=== PATIENT | female | born 1965 | race Hispanic/Latino ===

== ENCOUNTER 2020-12-04 16:46 | Emergency (ER) | payer BC, OTHER, SELFPAY ==
[2020-12-04 21:24] LABS: Absolute Lymphocytes (CBC) 1.3 K/uL (0.7-4.9); Basophils % 0.5 % (0-1.3); Hematocrit 35.2 % (36.0-45.0); Lymphocytes % 11.2 % (15.3-44.8); MPV 8.7 fL (7.6-11.3); RBC Red Blood Cell Count 4.15 M/uL (3.86-4.86)
[2020-12-04 21:42] LABS: ALT/SGPT 23 U/L (12-78); AST/SGOT 19 U/L (15-37); Albumin 2.9 g/dL (3.4-5.0); Alkaline Phosphatase 161 U/L (45-117); BUN Blood Urea Nitrogen 14 mg/dL (7-18); Bicarbonate 34 mmol/L (21-32); Bilirubin Direct < 0.1 mg/dL (0-0.2); Bilirubin Total 0.3 mg/dL (0.2-1.0); Glucose Level 333 mg/dL (74-106); Lipase 203 U/L (73-393); Potassium 3.8 mmol/L (3.5-5.1); Sodium Level 133 mmol/L (136-145)
[2020-12-04 22:01] LABS: Blood Morphology Comment NOT SEEN (NOT SEEN); Platelet Estimate ADEQ
[2020-12-04] MEDS ORDERED: NA CHLORIDE 0.9% 1,000 ML ONE (22:04)
[2020-12-04] MEDS ORDERED: levoFLOXacin 750 MG TAB ONE (23:39)
[2020-12-04] MEDS ORDERED: LIDOCAINE 1% MPF 30 ML VIAL ONE (23:39)
--- NOTE | 2020-12-04 23:48 | ER ---
Nurse's Notes [facility] Name: Chante Arteaga Age: 54 yrs Sex: Female : 1965 Arrival Date: 12/04/2020 Time: 16:49 Bed 6 Private MD: Michelle Greene K Diagnosis: Gluteal Abscess Presentation: 12/04 17:11 Chief complaint: Patient states: rectal abscess that began last week. Coronavirus ss screen: Client denies travel out of the [place] in the last 14 days. Ebola Screen: Patient denies exposure to infectious person. Patient denies travel to an Ebola-affected area in the 21 days before illness onset. Initial Sepsis Screen: Does the patient meet any 2 criteria? No. Patient's initial sepsis screen is negative. Does the patient have a suspected source of infection? Yes: Skin breakdown/wound. Risk Assessment: Do you want to hurt yourself or someone else? Patient reports no desire to harm self or others. Onset of symptoms was November 29, 2020. 17:11 Method Of Arrival: Ambulatory ss 17:11 Acuity: JESÚS 3 ss Historical: - Allergies: 17:12 No Known Allergies; ss - PMHx: 17:12 Diabetes - IDDM; Hyperlipidemia; ss - PSHx: 17:12 Mass removed from colon; Hernia repair; ; ss - Immunization history:: Adult Immunizations unknown. - Social history:: Smoking status: Patient denies any tobacco usage or history of. Screenin:02 Abuse screen: Denies threats or abuse. Nutritional screening: No deficits noted. ea Tuberculosis screening: No symptoms or risk factors identified. Fall Risk None identified. Assessment: 21:11 General: Appears uncomfortable, Behavior is appropriate for age. Pain: Complains of ea pain in buttocks. Neuro: Level of Consciousness is awake, alert, obeys commands, Oriented to person, place, time, situation. Cardiovascular: Patient's skin is warm and dry. Respiratory: Airway is patent Respiratory effort is even, unlabored, Respiratory pattern is regular, symmetrical. Derm: Skin is pink, warm \T\ dry. 22:20 Reassessment: Patient and/or family updated on plan of care and expected duration. Pain ea level reassessed. Patient is alert, oriented x 3, equal unlabored respirations, skin warm/dry/pink. Returned from CT. 23:10 Reassessment: Patient and/or family updated on plan of care and expected duration. Pain ea level reassessed. Patient is alert, oriented x 3, equal unlabored respirations, skin warm/dry/pink. Awaiting on CT results. 12/05 00:03 Reassessment: Patient and/or family updated on plan of care and expected duration. Pain em level reassessed. Patient is alert, oriented x 3, equal unlabored respirations, skin warm/dry/pink. Discharge instruction given to patient verbalized the understanding of instruction. Pt left ED ambulatory tolerating well. Vital Signs: 12/04 17:12 BP 155 / 83; Pulse 95; Resp 18; Temp 99.4(TE); Pulse Ox 99% on R/A; Weight 70.31 kg; ss Height 5 ft. 1 in. (154.94 cm); Pain 5/10; 23:10 BP 132 / 60; Pulse 90; Resp 18; Pulse Ox 98% on R/A; ea 17:12 Body Mass Index 29.29 (70.31 kg, 154.94 cm) ED Course: 16:49 Patient arrived in ED. ag5 16:49 Michelle Greene MD is Private Physician. ag5 17:12 Triage completed. ss 17:12 Arm band placed on right wrist. 20:57 Kapil Lombardo PA is PHCP. [facility] 20:57 Juan Antonio Berry MD is Attending Physician. [facility] 21:01 Coni Leon, [place] is Primary Nurse. ea 21:02 Patient has correct armband on for positive identification. Bed in low position. Call ea light in reach. 21:10 Inserted saline lock: 20 gauge in left antecubital area, using aseptic technique. Blood ea collected. 22:26 CT Pelvis w cont In Process Unspecified. EDMS 22:50 Assist provider with I \T\ D: of an abscess on right perirectal area Set up I\T\D tray. em Performed by Juan Antonio Berry MD Wound packed. iodoform gauze, Dressing with 4X4s, tape Patient tolerated well. 23:46 Davin Guadarrama MD is Referral Physician. [facility] 12/05 00:04 Patient did not have IV access during this emergency room visit. em Administered Medications: 12/04 21:50 Drug: NS 0.9% 1000 ml Route: IV; Rate: 1 bolus; Site: left antecubital; ea 23:30 Follow up: Response: No adverse reaction; IV Status: Completed infusion; IV Intake: ea 1000ml 12/05 00:07 Follow up: Response: No adverse reaction; IV Status: Completed infusion 12/04 23:25 Drug: LevaQUIN 750 mg Route: PO; ea 23:54 Follow up: Response: No adverse reaction 23:25 Drug: Lidocaine (1 %) 1 application Volume: 20 ml; Route: Infiltration; ea 12/05 00:07 Follow up: Response: No adverse reaction Intake: 12/04 23:30 IV: 1000ml; Total: 1000ml. ea Outcome: 23:47 Discharge ordered by MD. guerin 12/05 00:05 Discharged to home ambulatory. em Condition: stable Discharge instructions given to patient, Instructed on discharge instructions, follow up and referral plans. medication usage, Demonstrated understanding of instructions, follow-up care, medications, Prescriptions given X 1. 00:06 Patient left the ED. em Signatures: Dispatcher [employer] EDMS Kapil Lombardo PA PA jmm Munoz, Edgar RN Irene Ramirez RN RN ss Antunez, Elena, RN RN ea Habalo, Winsy, RN RN wh Gaskin, Ajare ag5
--- NOTE | 2020-12-04 23:48 | EDPHYS ---
Physician Documentation [facility] Name: Chante Arteaga Age: 54 yrs Sex: Female : 1965 Arrival Date: 12/04/2020 Time: 16:49 Bed 6 Private MD: Michelle Greene K ED Physician Juan Antonio Berry HPI: 12/04 20:57 This 54 yrs old Female presents to ER via Ambulatory with complaints of Rectal jmm Abscess. 20:57 The patient presents to the emergency department with an abscess of the buttocks. jmm Onset: The symptoms/episode began/occurred gradually, 1 week(s) ago. Modifying factors: The symptoms are alleviated by nothing, The symptoms are aggravated by sitting position. Associate signs and symptoms: Pertinent negatives: fever. This is a 54 year old female with a history of DM, HLP that presents to the ED with complaints of pain to the buttock beginning approx 1 week ago. Patient states swelling increased and was evaluated by Dr. Greene, advised the patient to go to the ED due to concerns for perirectal abscess. . Historical: - Allergies: 17:12 No Known Allergies; ss - PMHx: 17:12 Diabetes - IDDM; Hyperlipidemia; ss - PSHx: 17:12 Mass removed from colon; Hernia repair; ; ss - Immunization history:: Adult Immunizations unknown. - Social history:: Smoking status: Patient denies any tobacco usage or history of. ROS: 20:57 Constitutional: Negative for fever, chills, and weight loss, Cardiovascular: Negative jmm for chest pain, palpitations, and edema, Respiratory: Negative for shortness of breath, cough, wheezing, and pleuritic chest pain. 20:57 Skin: Positive for abscess. 20:57 All other systems are negative. Exam: 20:57 Constitutional: This is a well developed, well nourished patient who is awake, alert, jmm and in no acute distress. Head/Face: atraumatic. Eyes: EOMI, no conjunctival erythema appreciated ENT: Moist Mucus Membranes Neck: Trachea midline, Supple Chest/axilla: Normal chest wall appearance and motion. Cardiovascular: Regular rate and rhythm. No edema appreciated Respiratory: Normal respirations, no respiratory distress appreciated Abdomen/GI: Non distended, soft 20:57 Abdomen/GI: 3 cm abscess noted to the left gluteal region. 20:57 Musculoskeletal/extremity: ROM: intact in all extremities. 20:57 Skin: Appearance: Color: normal in color. 20:57 Neuro: Orientation: is normal, Mentation: is normal, Memory: is normal. 20:57 Psych: Behavior/mood is pleasant, cooperative. Vital Signs: 17:12 BP 155 / 83; Pulse 95; Resp 18; Temp 99.4(TE); Pulse Ox 99% on R/A; Weight 70.31 kg; ss Height 5 ft. 1 in. (154.94 cm); Pain 5/10; 23:10 BP 132 / 60; Pulse 90; Resp 18; Pulse Ox 98% on R/A; ea 17:12 Body Mass Index 29.29 (70.31 kg, 154.94 cm) ss MDM: 21:25 Patient medically screened. [facility] 23:45 Data reviewed: vital signs, nurses notes. Counseling: I had a detailed discussion with apoorva the patient and/or guardian regarding: the historical points, exam findings, and any diagnostic results supporting the discharge/admit diagnosis, lab results, radiology results, the need for outpatient follow up, to return to the emergency department if symptoms worsen or persist or if there are any questions or concerns that arise at home. ED course: Patient given abx in the ED. Abscess was drained. CT reveals no perirectal involvement. patient is advised to follow up with gen surgery and otherwise given strict return precautions. Patient understood and agrees with the plan of care. . 12/04 20:58 Order name: Basic Metabolic Panel [facility] 12/04 20:58 Order name: CBC with Diff; Complete Time: 22:06 [facility] 12/04 20:58 Order name: Hepatic Function; Complete Time: 21:42 [facility] 12/04 20:58 Order name: Lipase; Complete Time: 21:42 [facility] 12/04 20:58 Order name: Basic Metabolic Panel; Complete Time: 21:42 [facility] 12/04 20:57 Order name: Gown patient; Complete Time: 21:11 [facility] 12/04 20:58 Order name: IV Saline Lock; Complete Time: 21:11 [facility] 12/04 20:58 Order name: Labs collected and sent; Complete Time: 21:11 [facility] 12/04 20:58 Order name: CT Pelvis w cont [facility] 12/04 21:25 Order name: Manual Differential; Complete Time: 22:06 EDKY Administered Medications: 21:50 Drug: NS 0.9% 1000 ml Route: IV; Rate: 1 bolus; Site: left antecubital; ea 23:30 Follow up: Response: No adverse reaction; IV Status: Completed infusion; IV Intake: ea 1000ml 12/05 00:07 Follow up: Response: No adverse reaction; IV Status: Completed infusion 12/04 23:25 Drug: LevaQUIN 750 mg Route: PO; ea 23:54 Follow up: Response: No adverse reaction 23:25 Drug: Lidocaine (1 %) 1 application Volume: 20 ml; Route: Infiltration; ea 12/05 00:07 Follow up: Response: No adverse reaction Disposition: 06:23 Co-signature as Attending Physician, Juan Antonio Berry MD I agree with the assessment and tw4 plan of care. Disposition: 12/04/20 23:47 Discharged to Home. Impression: Gluteal Abscess. - Condition is Stable. - Discharge Instructions: How to Take a Sitz Bath, Perianal Abscess. - Prescriptions for Levaquin 750 mg Oral Tablet - take 1 tablet by ORAL route once daily for 10 days; 10 tablet. Doxycycline Hyclate 100 mg Oral Tablet - take 1 tablet by ORAL route every 12 hours; 20 tablet. - Medication Reconciliation Form, Thank You Letter, Antibiotic Education, Prescription Opioid Use, Work release form form. - Follow up: Davin Guadarrama MD; When: 2 - 3 days; Reason: Recheck today's complaints, Continuance of care, Re-evaluation by your physician. Signatures: Dispatcher [employer] [facility] Kapil Lombardo PA PA [facility] Jason Garcia, RN Irene Ramirez RN RN ss Antunez, Elena, RN RN ea Wadley, Terrence, MD MD tw4 Karina Mullins RN Corrections: (The following items were deleted from the chart) 12/04 20:59 20:59 CREATININE, SERUM+C.LAB.BRZ ordered. [facility] 12/05 00:06 12/04 23:47 12/04/2020 23:47 Discharged to Home. Impression: Gluteal Abscess. Condition em is Stable. Forms are Medication Reconciliation Form, Thank You Letter, Antibiotic Education, Prescription Opioid Use. Follow up: Davin Guadarrama; When: 2 - 3 days; Reason: Recheck today's complaints, Continuance of care, Re-evaluation by your physician. apoorva
[2020-12-05 00:15] VITALS: TEMP 99.4
[2020-12-05 00:16] VITALS: BP 132/60; O2SAT 98
--- NOTE | 2020-12-05 09:13 | RAD REPORT ---
EXAM DESCRIPTION: CT - Pelvis W/Cont - 12/05/2020 6:27 am CLINICAL HISTORY: Rectal pain. COMPARISON: CT abdomen and pelvis with contrast August 11, 2017. TECHNIQUE: Axial enhanced CT imaging of the pelvis. Reformatted coronal and sagittal images reviewed . Examination was performed according to our departmental dose-optimization program, which includes aut omated exposure control, adjustment of the mA and/or kV according to patient size and/or use of itera tive reconstruction technique. FINDINGS: RETROPERITONEAL VESSELS/NODES: Normal caliber aorta and inferior vena cava as visualized. No retroperitoneal lymphadenopathy. There are minimal atherosclerotic calcifications at the aortic bi furcation. BOWEL: The included portions of the small bowel appear normal. There is moderate diverticulosis in th e descending and sigmoid colon. MESENTERY/PERITONEUM: No ascites. There is a ventral hernia mesh with diastases recti. No pelvic lymp hadenopathy. BLADDER: The bladder contains a punctate focus of air along the nondependent wall. No filling defects . No adjacent edema. GENITAL ORGANS: Unremarkable uterus. Normal ovaries. PERITONEUM: No free fluid within the pelvis. BONES AND SOFT TISSUES: Intact bony pelvis. Unremarkable hips. Degenerative disc narrowing with vacuu m disc at L5-S1 with slight anterior subluxation of L5 on S1 secondary to a pars defect present bilat erally. Intact bony pelvis. Normal hips. There is a 4.3 x 1.8 x 3.1 cm fluid collection in the right posterior lateral perianal subcutaneous t issues along the medial aspect of the inferior right buttock compatible with phlegmon or forming absc ess. No subcutaneous emphysema. No foreign body seen. Mild bilateral buttock subcutaneous edema. IMPRESSION: 1. Right posterior lateral perianal 4.3 cm phlegmon/forming abscess. No subcutaneous emp hysema to suggest necrotizing fasciitis. No intrapelvic extension. 2. Mild bilateral buttock edema. 3. Descending and sigmoid colon diverticulosis without diverticulitis. 4. Intrabladder air may be due to recent catheterization or cystitis. 5. Bilateral L5 spondylolysis with minimal anterior subluxation of L5 on S1. Electronically signed by: Deidra Coats DO 12/04/2020 10:33 PM COLOR MATCHER Due to temporary technical issues with the PACS/Fluency reporting system, reports are being signed by the in house radiologists without review as a courtesy to insure prompt reporting. The interpreting radiologist is fully responsible for the content of the report.
== END 2020-12-05 00:06 | disposition home or self-care (01) ==
LOC: ER 16:46
PROC: 0J990ZZ Drainage of Buttock Subcutaneous Tissue and Fascia, Open Approach (ICD-10-PCS; principal; 2020-12-04)
DX: L02.31 Cutaneous abscess of buttock (principal)
CPT/HCPCS: 96361; 85025; 80048; 36415; 80076; 83690; 72193; 96360; 99284; 10060; Q9967; J7030

== ENCOUNTER 2021-05-29 12:20 | Inpatient (IN) | payer OTHER ==
[2021-05-29 13:10] LABS: Absolute Lymphocytes (CBC) 1.6 K/uL (0.7-4.9); Basophils % 0.9 % (0-1.3); Hematocrit 36.3 % (36.0-45.0); Lymphocytes % 13.7 % (15.3-44.8); MPV 8.9 fL (7.6-11.3); RBC Red Blood Cell Count 4.21 M/uL (3.86-4.86)
--- NOTE | 2021-05-29 13:23 | RAD REPORT ---
EXAM DESCRIPTION: CT - Pelvis W/Cont - 05/29/2021 1:12 pm CLINICAL HISTORY: rectal pain COMPARISON: Pelvis W/Cont dated 12/04/2020 FINDINGS: No bowel obstruction. Prior ventral hernia repair. Diverticulosis without diverticulitis. No adnexal masses. There is gas within the bladder which is nonspecific. Reactive sized left inguinal lymph nodes. No focal osseous lesions. No fractures are identified. Pars defects at L5. 3.7 x 1.9 ce ntimeter fluid collection along the medial aspect of the left gluteal cleft. Is is near the anus. Ove rlying soft tissue thickening likely represent cellulitis. IMPRESSION: Left-sided perianal abscess. Gas within the bladder may be secondary to infection versus recent instrumentation.
[2021-05-29 13:28] LABS: Potassium 3.9 mmol/L (3.5-5.1)
[2021-05-29] MEDS ORDERED: BUPIVACAINE 0.5% PF 10 ML VIAL ONE (14:14)
[2021-05-29] MEDS ORDERED: LIDOCAINE 1% 20 ML MDV ONE (14:15)
--- NOTE | 2021-05-29 15:26 | ER ---
Nurse's Notes 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 ca1 Coronavirus screen: Client denies travel out of the [place] in the last 14 days. At this time, the client does not indicate any symptoms associated with coronavirus-19. Ebola Screen: Patient negative for fever greater than or equal to 101.5 degrees Fahrenheit, and additional compatible Ebola Virus Disease symptoms Patient denies exposure to infectious person. Patient denies travel to an Ebola-affected area in the 21 days before illness onset. No symptoms or risks identified at this time. Initial Sepsis Screen: Does the patient meet any 2 criteria? No. Patient's initial sepsis screen is negative. Does the patient have a suspected source of infection? No. Patient's initial sepsis screen is negative. Risk Assessment: Do you want to hurt yourself or someone else? Patient reports no desire to harm self or others. Onset of symptoms was May 29, 2021. 12:31 Method Of Arrival: Ambulatory ca1 12:31 Acuity: JESÚS 4 ca1 Triage Assessment: 12:45 General: Appears in no apparent distress. Behavior is calm, cooperative, appropriate ld1 for age. Pain: Complains of pain in rectum Quality of pain is described as aching, Aggravated by increased activity. Derm: Abscess Reports abscess to rectal area, see physicians note for further details of abscess. Historical: - Allergies: 12:33 No Known Allergies; ca1 - PMHx: 12:33 Diabetes - IDDM; Hyperlipidemia; ca1 - Immunization history:: Client reports receiving the 2nd dose of the Covid vaccine, Client reports receiving the 1st dose of the Covid vaccine, Flu vaccine is not up to date. - Social history:: Smoking status: Patient denies any tobacco usage or history of. Screenin:47 Abuse screen: Denies threats or abuse. Nutritional screening: No deficits noted. ld1 Tuberculosis screening: No symptoms or risk factors identified. 12:47 Fall Risk Total Vega Fall Scale indicates No Risk (0-24 pts). ld1 Assessment: 13:45 Reassessment: No changes from previously documented assessment. Patient and/or family ll1 updated on plan of care and expected duration. Pain level reassessed. 14:45 Reassessment: No changes from previously documented assessment. Patient and/or family ll1 updated on plan of care and expected duration. Pain level reassessed. 15:45 Reassessment: No changes from previously documented assessment. Patient and/or family ll1 updated on plan of care and expected duration. Pain level reassessed. 16:10 Reassessment: Shaking uncontrollably. Jenelle Lombardo PA-C informed. ll1 17:10 Reassessment: No changes from previously documented assessment. Patient and/or family ll1 updated on plan of care and expected duration. Pain level reassessed. Patient is alert, oriented x 3, equal unlabored respirations, skin warm/dry/pink. Patient states feeling better. Patient states symptoms have improved. 18:10 Reassessment: No changes from previously documented assessment. Patient and/or family ll1 updated on plan of care and expected duration. Pain level reassessed. Vital Signs: 12:31 BP 140 / 91; Pulse 101; Resp 18 S; Temp 97.6(TE); Pulse Ox 100% on R/A; Weight 70.31 kg ca1 (R); Height 5 ft. 1 in. (154.94 cm) (R); Pain 4/10; 16:12 BP 179 / 98; Pulse 82; Resp 20; Temp 99.4; Pulse Ox 100% ; ll1 17:45 BP 111 / 70; Pulse 105; Resp 16; Pulse Ox 97% on R/A; ll1 19:01 BP 101 / 61; Pulse 103; Resp 16; Pulse Ox 96% on R/A; ll1 12:31 Body Mass Index 29.29 (70.31 kg, 154.94 cm) ca1 16:12 shaking uncontrollably. Fingerstick 327. Fever 99.4 Alcira Lombardo PA-C informed, Given ll1 verbal order for tylenol. ED Course: 12:24 Patient arrived in ED. ds1 12:33 Triage completed. ca1 12:33 Arm band placed on right wrist. ca1 12:34 Kapil Lombardo PA is PHCP. jmm 12:34 Lucas eHrrera MD is Attending Physician. [facility] 12:34 Loretta Kahn, RN is Primary Nurse. ld1 12:34 Patient placed in an exam room, on a stretcher. ld1 12:47 Patient has correct armband on for positive identification. Bed in low position. Call ld1 light in reach. Side rails up X 1. Cardiac monitoring not applicable on this patient. 12:50 Inserted saline lock: 22 gauge in right antecubital area, using aseptic technique. ll1 Blood collected. 13:12 CT Pelvis w cont In Process Unspecified. EDMS 15:24 Sunny Choudhury MD is Referral Physician. [facility] 17:09 Bhavin Noble MD is Hospitalizing Provider. [facility] Administered Medications: 14:00 Drug: Marcaine (bupivacaine) (0.5 %) 10 ml Volume: 10 ml; Route: Infiltration; ll1 18:02 Follow up: Response: No adverse reaction ll1 14:00 Drug: Lidocaine (1 %) 20 ml Volume: 20 ml; Route: Infiltration; ll1 18:03 Follow up: Response: No adverse reaction 1 15:39 Drug: NS 0.9% 1000 ml Route: IV; Rate: 1 bolus; Site: right antecubital; ll1 16:30 Follow up: IV Status: Completed infusion; IV Intake: 1000ml ll1 15:39 Drug: Insulin Regular Human 10 units {Co-Signature: ph (Elizabeth Rock RN).} Route: IVP; 1 Site: right antecubital; 16:10 Follow up: Response: Adverse reaction, Physician notified 1 16:12 Drug: Tylenol 1000 mg Route: PO; ll1 18:04 Follow up: Response: No adverse reaction ll1 16:33 Drug: diphenhydrAMINE 25 mg Route: IVP; Site: right antecubital; ll1 17:59 Follow up: Response: No adverse reaction ll1 16:33 Drug: Pepcid (famotidine) 20 mg Route: IVP; Site: right antecubital; ll1 17:59 Follow up: Response: No adverse reaction ll1 16:33 Drug: fentaNYL (PF) 25 mcg Route: IVP; Site: right antecubital; ll1 17:58 Follow up: Response: No adverse reaction; Pain is decreased; RASS: Alert and Calm (0) ll1 16:56 Drug: Flagyl (metroNIDAZOLE) 500 mg Volume: 100 ml; Route: IVPB; Rate: 200 ml/hr; ll1 Infused Over: 30 mins; Site: right antecubital; 18:00 Follow up: Response: No adverse reaction; IV Status: Completed infusion; IV Intake: ll1 100ml 18:10 Drug: LevaQUIN (levofloxacin) 750 mg Volume: 150 ml; Route: IVPB; Infused Over: 90 ll1 mins; Site: right antecubital; Intake: 16:30 IV: 1000ml; Total: 1000ml. ll1 18:00 IV: 100ml; Total: 1100ml. ll1 Outcome: 15:25 Discharge ordered by MD. apoorva 17:09 Decision to Hospitalize by Provider. apoorva 20:12 Patient left the ED. mw2 Signatures: Dispatcher [employer] EDMS Kapil Lombardo PA PA jmm Sanford, Demi dsGovind Muir mw2 Letty Hopper RN RN ca1 Nasima Albright RN RN 1 Loretta Kahn RN RN 1 Elizabeth Rock RN ph
--- NOTE | 2021-05-29 15:26 | EDPHYS ---
Physician Documentation [facility] Name: Chante Arteaga Age: 55 yrs Sex: Female : 1965 Arrival Date: 05/29/2021 Time: 12:24 Bed 20 Private MD: ED Physician Lucas Herrera HPI: 05/29 13:02 This 55 yrs old Female presents to ER via Ambulatory with complaints of jmm Abscess. 13:02 the patient presents with a swollen area of the buttocks. Onset: The symptoms/episode jmm began/occurred gradually, 1 week(s) ago. Possible cause(s): unknown. Associated signs and symptoms: Pertinent positives: drainage, erythema, swelling, Pertinent negatives: fever. This is a 55-year-old female with history of diabetes mellitus, hyperlipidemia that presents to the emergency room with complaints of left gluteal swelling. Patient states symptoms been ongoing for approximately 1 week. Denies fever. Patient states she has had this 1 other time approximately 6 months ago and needed drainage in the ED. Patient did not follow general surgery.. Historical: - Allergies: 12:33 No Known Allergies; ca1 - PMHx: 12:33 Diabetes - IDDM; Hyperlipidemia; ca1 - Immunization history:: Client reports receiving the 2nd dose of the Covid vaccine, Client reports receiving the 1st dose of the Covid vaccine, Flu vaccine is not up to date. - Social history:: Smoking status: Patient denies any tobacco usage or history of. ROS: 13:02 Constitutional: Negative for fever, chills, and weight loss, Cardiovascular: Negative jmm for chest pain, palpitations, and edema, Respiratory: Negative for shortness of breath, cough, wheezing, and pleuritic chest pain. 13:02 Skin: Positive for abscess, swelling. 13:02 All other systems are negative. Exam: 13:02 Constitutional: This is a well developed, well nourished patient who is awake, alert, jmm and in no acute distress. Head/Face: atraumatic. Eyes: EOMI, no conjunctival erythema appreciated ENT: Moist Mucus Membranes Neck: Trachea midline, Supple Chest/axilla: Normal chest wall appearance and motion. Cardiovascular: Regular rate and rhythm. No edema appreciated Respiratory: Normal respirations, no respiratory distress appreciated Abdomen/GI: Non distended, soft Back: Normal ROM 13:02 Skin: swelling noted to the left gluteal cleft. 13:02 Neuro: Orientation: is normal, Mentation: is normal, Memory: is normal. 13:02 Psych: Behavior/mood is pleasant, cooperative. Vital Signs: 12:31 BP 140 / 91; Pulse 101; Resp 18 S; Temp 97.6(TE); Pulse Ox 100% on R/A; Weight 70.31 kg ca1 (R); Height 5 ft. 1 in. (154.94 cm) (R); Pain 4/10; 16:12 BP 179 / 98; Pulse 82; Resp 20; Temp 99.4; Pulse Ox 100% ; ll1 17:45 BP 111 / 70; Pulse 105; Resp 16; Pulse Ox 97% on R/A; ll1 19:01 BP 101 / 61; Pulse 103; Resp 16; Pulse Ox 96% on R/A; ll1 12:31 Body Mass Index 29.29 (70.31 kg, 154.94 cm) ca1 16:12 shaking uncontrollably. Fingerstick 327. Fever 99.4 Alcira Lombardo PA-C informed, Given ll1 verbal order for tylenol. Procedures: 15:18 I \\T\\ D: Incision and drainage was performed for an abscess of the buttocks Prepped with [facility] Betadine, Anesthetized with 10 ml's 1% Lidocaine. Incised with #11 blade. Drained large amount purulent fluid. Packed with iodoform gauze, Dressing: sterile 4x4 gauze, the patient tolerated the procedure well. MDM: 12:46 Patient medically screened. [facility] 15:18 Data reviewed: vital signs, nurses notes. Counseling: I had a detailed discussion with [facility] the patient and/or guardian regarding: the historical points, exam findings, and any diagnostic results supporting the discharge/admit diagnosis, radiology results, the need for outpatient follow up, to return to the emergency department if symptoms worsen or persist or if there are any questions or concerns that arise at home. 15:19 Refusal of service: The patient/guardian displays adequate decision making capability [facility] and despite a detailed discussion of alternatives, benefits, risks, and consequences refuses: Admission to the hospital for further work-up and treatment. 16:35 ED course: Patient developed sudden onset rigors after administration of 10 units of IV [facility] insulin and normal saline. At this point the patient stated that she would prefer to be admitted to the hospital for observation.. 05/29 12:47 Order name: CBC with Diff; Complete Time: 13:32 [facility] 05/29 12:47 Order name: BMP; Complete Time: 13:32 [facility] 05/29 14:29 Order name: CREATININE WHOLE BLOOD; Complete Time: 14:30 [facility] 05/29 17:01 Order name: Blood Culture Adult (2) [facility] 05/29 17:02 Order name: Wound Culture [facility] 05/29 17:03 Order name: Wound Culture [facility] 05/29 17:16 Order name: Glucose, Ancillary Testing; Complete Time: 17:26 [facility] 05/29 17:36 Order name: Basic Metabolic Panel [facility] 05/29 17:36 Order name: Basic Metabolic Panel [facility] 05/29 17:37 Order name: CBC with Automated Diff [facility] 05/29 17:37 Order name: CBC with Automated Diff [facility] 05/29 17:37 Order name: Lipase [facility] 05/29 17:37 Order name: Lipase [facility] 05/29 17:37 Order name: Liver (Hepatic) Function [facility] 05/29 12:47 Order name: Saline Lock; Complete Time: 12:50 [facility] 05/29 12:47 Order name: CT Pelvis w cont; Complete Time: 13:32 [facility] 05/29 17:37 Order name: NPO [facility] 05/29 17:37 Order name: Liver (Hepatic) Function [facility] 05/29 19:16 Order name: COVID-19 : Document "Date of Symptom Onset" if Symptomatic. ld1 Administered Medications: 14:00 Drug: Marcaine (bupivacaine) (0.5 %) 10 ml Volume: 10 ml; Route: Infiltration; ll1 18:02 Follow up: Response: No adverse reaction ll1 14:00 Drug: Lidocaine (1 %) 20 ml Volume: 20 ml; Route: Infiltration; ll1 18:03 Follow up: Response: No adverse reaction ll1 15:39 Drug: NS 0.9% 1000 ml Route: IV; Rate: 1 bolus; Site: right antecubital; ll1 16:30 Follow up: IV Status: Completed infusion; IV Intake: 1000ml ll1 15:39 Drug: Insulin Regular Human 10 units {Co-Signature: ph (Elizabeth Rock RN).} Route: IVP; ll1 Site: right antecubital; 16:10 Follow up: Response: Adverse reaction, Physician notified ll1 16:12 Drug: Tylenol 1000 mg Route: PO; ll1 18:04 Follow up: Response: No adverse reaction ll1 16:33 Drug: diphenhydrAMINE 25 mg Route: IVP; Site: right antecubital; ll1 17:59 Follow up: Response: No adverse reaction ll1 16:33 Drug: Pepcid (famotidine) 20 mg Route: IVP; Site: right antecubital; ll1 17:59 Follow up: Response: No adverse reaction ll1 16:33 Drug: fentaNYL (PF) 25 mcg Route: IVP; Site: right antecubital; ll1 17:58 Follow up: Response: No adverse reaction; Pain is decreased; RASS: Alert and Calm (0) ll1 16:56 Drug: Flagyl (metroNIDAZOLE) 500 mg Volume: 100 ml; Route: IVPB; Rate: 200 ml/hr; ll1 Infused Over: 30 mins; Site: right antecubital; 18:00 Follow up: Response: No adverse reaction; IV Status: Completed infusion; IV Intake: ll1 100ml 18:10 Drug: LevaQUIN (levofloxacin) 750 mg Volume: 150 ml; Route: IVPB; Infused Over: 90 ll1 mins; Site: right antecubital; Disposition Summary: 05/29/21 17:09 Hospitalization Ordered Hospitalization Status: Observation [facility] Provider: Bhavin Noble [facility] 17:09[facility] Condition: Stable(05/29/21 17:09) jm Problem: new [facility] Symptoms: have improved [facility] Bed/Room Type: Standard [facility] Room Assignment: 222(05/29/21 18:01) Diagnosis - Perirectal Abscess [facility] Forms: - Medication Reconciliation Form [facility] - SBAR form [facility] Addendum: 06/02/2021 17:05 Co-signature as Attending Physician, Lucas Herrera MD. m a2 Signatures: Dispatcher [employer] EDMS Kapil Lombardo PA PA jmm Smirch, Shelby, RN RN ss Alzahri, Mohammad, MD MD nc2 Letty Hopper RN RN [facility] Nasima Albright RN RN ll1 Elizabeth Rock RN ph Corrections: (The following items were deleted from the chart) 05/29 16: 15:25 Home [facility] 16 15:25 Stable [facility] 16: 15:25 Perianal Abscess [facility] 18:01 17:09 [facility] ss
[2021-05-29] MEDS ORDERED: INSULIN -REGULAR HUMAN 50 UNIT/0.5 ML ML ONE (15:56)
[2021-05-29] MEDS ORDERED: NA CHLORIDE 0.9% 1,000 ML ONE (15:56)
[2021-05-29] MEDS ORDERED: ACETAMINOPHEN 500 MG TAB ONE (16:31)
[2021-05-29] MEDS ORDERED: DIPHENHYDRAMINE 50 MG/ML VIAL ONE (16:51)
[2021-05-29] MEDS ORDERED: FAMOTIDINE 20 MG/2 ML VIAL IV ONE (16:51)
[2021-05-29] MEDS ORDERED: FENTANYL CITR 100 MCG/2 ML ONE (16:53)
[2021-05-29] MEDS ORDERED: Levofloxacin 750mg IV 750 MG/150 ML BAG IV ONE (17:07)
[2021-05-29] MEDS ORDERED: METRONIDAZOLE 500mg IVPB 500 MG/100 ML BAG IV ONE (17:07)
[2021-05-29] MEDS ORDERED: ACETAMINOPHEN 500 MG TAB PO PRN (17:34)
[2021-05-29] MEDS ORDERED: ONDANSETRON 4 MG/2 ML VIAL IV PRN (17:34)
[2021-05-29] MEDS ORDERED: MORPHINE 4 MG/ML SYR IV PRN (17:34)
[2021-05-29] MEDS ORDERED: Levofloxacin 750mg IV 750 MG/150 ML BAG IV SCH (18:00)
[2021-05-29] MEDS: METRONIDAZOLE 500mg IVPB 500 MG/100 ML BAG IV SCH (18:00)
[2021-05-29] MEDS ORDERED: NA CHLORIDE 0.9% 500 ML IV ONE (21:19)
[2021-05-29] MEDS ORDERED: MORPHINE 2 MG/ML SYR IV PRN (21:21)
[2021-05-29] MEDS ORDERED: TRAMADOL HCL 50 MG TAB PO PRN (21:22)
[2021-05-29] MEDS ORDERED: Ringers Lactate 1,000 ML IV ONE (21:22)
[2021-05-29] MEDS: Ringers Lactate 1,000 ML IV SCH (21:30)
[2021-05-29] MEDS ORDERED: D50W 25 GM/50 ML SYRINGE IV PRN (21:31)
[2021-05-29] MEDS ORDERED: GLUCAGON 1 MG/VIAL IM PRN (21:31)
--- NOTE | 2021-05-29 21:31 | P.HP ---
Certification for Inpatient Patient admitted to: Inpatient With expected LOS: >2 Midnights Practitioner: I am a practitioner with admitting privileges, knowledge of patient current condition, hospital course, and medical plan of care. 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 SHE WAS SUPPOSED TO COME TO OFFICE IN NOVEMBER AND SHE NEVER CAME. I HAD GIVEN HER SOLIQUA DAILY AT THAT TIME BUT I AM NOT SURE IF SHE TAKES IT DAILY AND HOW MUCH SHE TAKES. SHE IS TO RAISE THE DOSE AND SHE POSSIBLY NEVER DID. SHE IS TO EAT PROPERLY BUT SHE DOES NOT. SHE IS TO FOLLOW PALEO DIET BUT SHE DOES NOT. SHE HAS ABSCESS IN PERIRECTAL AREA THAT SHE ALSO HAD IN DECEMBER AND DID NEVER FOLLOW UP WITH ME. SHE IS BACK WITH SAME ISSUE. IN ER SHE WAS GIVEN IV ABX, IV INSULIN AND HAD PYROGENIC REACTION AFTER THAT. Allergies No Known Allergies Allergy (Verified 05/29/21 20:36) Home medications list reviewed: Yes - Past Medical/Surgical History Has patient received pneumonia vaccine in the past: No Diabetic: Yes -: DM2 -: Pre Cancerous Colon - Family History Father -: Diabetes Mother -: Cancer - Social History Smoking Status: Never smoker Alcohol use: No CD- Drugs: No Caffeine use: Yes Place of Residence: Home Review of Systems 10-point ROS is otherwise unremarkable General: Weakness, Malaise Integumentary: As per HPI Physical Examination - Vital Signs Temperature: 99.4 F Blood Pressure: 101/61 Pulse: 103 Respirations: 16 - Physical Exam General: Oriented x3, Mild distress, Obese HEENT: Atraumatic, PERRLA, Mucous membr. moist/pink, EOMI, Sclerae nonicteric Neck: Supple, 2+ carotid pulse no bruit, No LAD, Without JVD or thyroid abnormality Respiratory: Clear to auscultation bilaterally, Normal air movement Cardiovascular: Regular rate/rhythm, Normal S1 S2 Gastrointestinal: Normal bowel sounds, No tenderness, Other (PERIRECTAL ABSCESS.) Musculoskeletal: No tenderness Integumentary: No rashes Neurological: Normal gait, Normal speech, Normal strength at 5/5 x4 extr, Normal tone, Normal affect Lymphatics: No axilla or inguinal lymphadenopathy - Studies Laboratory Data (last 24 hrs) 05/29/21 13:00: Sodium 129 L, Potassium 3.9, BUN 18, Creatinine 1.19, Glucose 552 H* 05/29/21 13:00: WBC 11.40 H, Hgb 12.4, Hct 36.3, Plt Count 286 Assessment and Plan - Problems (Diagnosis) (1) Perirectal abscess Current Visit: Yes Status: Acute Plan: IV ABX CHOSEN BY DR. CORY QUINTANILLA. HE WILL DO SURGERY IN AM. (2) Uncontrolled diabetes mellitus Current Visit: Yes Status: Chronic Plan: COMPLIANCE IS POOR. SHE KNOWS COMPLICATIONS OF DIABETES. WE HAD LONG DISCUSSION AND SHE IS AWARE THAT DIABETIC COMPLICATIONS CAN HAVE DEADLY CONSEQUENCES IF NOT TAKEN CARE OF. IF SHE STAYS NON COMPLIANT, I AM NOT SURE IF ANY ONE CAN HELP HER IN ANY WAY. CHECK LAB. CONTINUE SLIDING SCALE. Qualifiers: Diabetes mellitus type: type 2 (3) Septic shock Current Visit: Yes Status: Acute Plan: IV ABX IV BOLUS IV FLUIDS. DOPAMINE IV IF NEED. - Advance Directives Does patient have a Living Will: No Does patient have a Durable POA for Healthcare: No
[2021-05-29] MEDS ORDERED: Ringers Lactate 500 ML IV ONE (22:34)
[2021-05-29 22:36] VITALS: BMI 28.8
[2021-05-29] MEDS: INSULIN -REGULAR HUMAN 50 UNIT/0.5 ML ML SQ SCH (23:36)
[2021-05-30] MEDS ORDERED: NA CHLORIDE 0.9% 500 ML IV ONE (00:03)
[2021-05-30] MEDS: METRONIDAZOLE 500mg IVPB 500 MG/100 ML BAG IV SCH ×3 (00:26→18:43)
[2021-05-30] MEDS ORDERED: PIPERACIL/TAZO 3.375 GM VIAL IV ONE (00:30)
[2021-05-30] MEDS: PIPER/TAZO/NS 3.375gm 3.375 GM/100 ML BAG IVPB SCH ×3 (00:54→20:53)
[2021-05-30] MEDS ORDERED: NA CHLORIDE 0.9% 100 ML ONE (01:07)
[2021-05-30] MEDS: Ringers Lactate 1,000 ML IV SCH ×2 (02:53→18:43)
[2021-05-30] MEDS ORDERED: VANCOMYCIN 1 GM/VIAL ONE (02:53)
[2021-05-30] MEDS ORDERED: VANCOMYCIN 1 GM in NA CHLORIDE 0.9% 500 ML IVPB SCH (03:00)
[2021-05-30] MEDS ORDERED: NA CHLORIDE 0.9% 500 ML ONE (03:06)
[2021-05-30 05:41] LABS: Absolute Lymphocytes (CBC) 1.1 K/uL (0.7-4.9); Basophils % 0.4 % (0-1.3); Lymphocytes % 7.9 % (15.3-44.8); MPV 9.1 fL (7.6-11.3)
[2021-05-30] MEDS: ENOXAPARIN 40 MG/0.4 ML SQ SCH (08:17)
[2021-05-30] MEDS: INSULIN -REGULAR HUMAN 50 UNIT/0.5 ML ML SQ SCH ×4 (08:23→20:53)
[2021-05-30 08:53] LABS: Blood Morphology Comment NOT SEEN (NOT SEEN); Platelet Estimate ADEQ; White Blood Cell Scan OK (OK)
--- NOTE | 2021-05-30 11:19 | CON ---
Date of Consultation: 05/30/2021 Reason For Service: Perianal abscess. History Of Present Illness: This is a case of a 55-year-old patient, comes to us with perianal tende rness, lump, consistent with an abscess. The ER trying to do an I and D there, but it was so painful that there was a very limited incision. Today, we see the area still draining a lot amount of pus t hrough a very tiny incision. So, they called us for proper drainage of a perirectal/perianal abscess . She remembers that several years ago, she had a similar episode. They drained the area. She pack ed the area, but she has not had any issues since then. She denies any trauma, dysuria, hematuria, h ematochezia, melena. Past Medical History: Includes diabetes. Family History: Includes diabetes 2. Social History: She does not smoke. She does not drink alcohol. Medications: At this moment, they are considering giving her IV insulin. Review of Systems: See H and P. Patient denies any trauma that to that region. Patient has perianal pain and purulent discharge. Review of Systems: Ten points otherwise unremarkable. Physical Examination: General: Patient is awake, alert, in no distress. HEENT: Pupils anicteric. Chest: Clear. Abdomen: Soft and depressible. Extremities: Good capillary refill. : Perianal region shows a small incision in the perianal area still draining purulent discharge on compression, but it is too painful for evaluation here, so we are going to have to do it under anest hesia. Laboratory Data: Blood work shows WBC count of 14 with hemoglobin of comes from 11. Sodi um is 136, potassium is 4, and glucose 275. Pelvis CT interpreted by Dr. Casey as perianal abscess. Assessment: This is a 55-year-old patient with perianal abscess of unknown origin. We offered her e xamination under anesthesia, anoscopy, proctoscopy, incision and drainage of perianal abscess with be nefits, alternatives, and risks including, but not limited to infection, bleeding, damage to adjacent structures, anesthesia complication, nonhealing wound, CA, and even . She also understands the chance of anal stricture and incontinence. At this moment, we are trying to also see if we can find etiology of that. Most of the time it is not possible due to severe infection, but we discussed wit h her options in the future with her colonoscopies, trying to identify if there is any evidence of fi stula. If this continued, she has to rule that out. RADHA Voice ID: [id number] Report ID: [id number]
[2021-05-30] MEDS ORDERED: NA CHLORIDE 0.9% 1,000 ML ONE (11:46)
--- NOTE | 2021-05-30 11:50 | P.BOP ---
Preoperative diagnosis: Perianal abscess. cellulitis Postoperative diagnosis: same Primary procedure: EUA, ANoscopy, Rigid PRoctoscopy Secondary procedure: Incision and drainage of perianal abscess Estimated blood loss: <10cc Specimen: pus Findings: abscess Anesthesia: General Transferred to: Recovery Room Condition: Good
[2021-05-30] MEDS ORDERED: MIDAZOLAM HCL 2 MG/2 ML INJ ONE (11:51)
[2021-05-30] MEDS ORDERED: LIDOCAINE 1% MPF 5 ML VIAL ONE (11:51)
[2021-05-30] MEDS ORDERED: FENTANYL CITR 100 MCG/2 ML ONE (11:51)
[2021-05-30] MEDS ORDERED: ROCURONIUM 50 MG/5 ML VIAL IV ONE (11:51)
[2021-05-30] MEDS ORDERED: propofoL 200 MG/20 ML VIAL IV ONE (11:51)
[2021-05-30] MEDS ORDERED: EPHEDRINE SULF 50 MG/ML VIAL ONE (12:19)
[2021-05-30] MEDS ORDERED: NS 0.9% VIAL 10 ML ONE (12:19)
[2021-05-30] MEDS ORDERED: dexAMETHasone 10 MG/ML VIAL ONE (12:22)
[2021-05-30] MEDS ORDERED: ONDANSETRON 4 MG/2 ML VIAL ONE (12:26)
--- NOTE | 2021-05-30 12:39 | OP ---
Surgeon: Davin Guadarrama MD Preoperative Diagnoses: Perianal abscess, cellulitis, perianal pain. Postoperative Diagnoses: Perianal abscess, cellulitis, perianal pain. Procedures: Examination under anesthesia, anoscopy, rigid proctoscopy, incision and drainage of [place] anal complex abscess. Estimated Blood Loss: Less than 10 mL. Specimen: Pus. Finding: Multiloculated abscess. Anesthesia: General plus local. Indication: This is the case of a female, who comes to us with a perianal abscess. The ER trying to make an incision and drainage, but the abscess is too complex today, still full of pus, still draini ng, so they asked me to do an incision and drainage of perianal abscess under anesthesia. The benefi ts, alternatives, and risks of that, anoscopy, proctoscopy were fully explained to the patient, which include, but not limited to infection, bleeding, damage to adjacent structures, anesthesia complicat ion, recurrence, OR, and even . She also understands this may not relieve any symptoms. She mi ght need more than one surgical intervention. She understood, signed a consent. She was advised to follow up with her manager rental for a timing of her colonoscopies. She signed a consent. Procedure In Detail: The patient was brought to the operating room, placed in supine position. Anes thesia was done without complication. The patient was placed in lithotomy position with proper prote ction. The area was prepped and draped in usual sterile fashion. A time-out was called. After that , we went to the area of the fluctuance. The incision and drainage is anterior, but this goes flower stripper ior. It is a cavity of about 4 x 4 cm with multiple loculations that have to be explored. So, once we opened the skin, we were able to visualize loculations, explore them, remove the pus. I irrigated the area, obtained hemostasis, and then I removed the necrotic tissue from that area and then packed the area with Iodoform quarter of an inch. The patient tolerated the procedure well. The patient i s on her way to recovery in stable condition. Sponge count and instrument counts correct. WEN/MODL Voice ID: [id number] Report ID: [id number]
[2021-05-30 12:50] VITALS: O2SAT 97
--- NOTE | 2021-05-30 15:13 | P.PN ---
Subjective Date of Service: 05/30/21 Chief Complaint: ABSCESS IN RECTUM Subjective: Improving SHE HAD HYPOTENSION LAST NIGHT. I GAVE IV BOLUSES AND CHANGED ANTIBIOTICS. SHE IS STABLE THIS AM. Physical Examination - Vital Signs Temperature: 97.8 F Blood Pressure: 107/55 Pulse: 96 Respirations: 17 Pulse Ox (%): 98 - Physical Exam General: Oriented x3, Mild distress, Obese HEENT: Atraumatic, PERRLA, EOMI Neck: Supple, JVD not distended Respiratory: Clear to auscultation bilaterally, Normal air movement Cardiovascular: Regular rate/rhythm, Normal S1 S2 Gastrointestinal: Normal bowel sounds, No tenderness Musculoskeletal: No tenderness Integumentary: No rashes Neurological: Normal speech, Normal tone, Normal affect Lymphatics: No axilla or inguinal lymphadenopathy - Studies Laboratory Data (last 24 hrs) 05/30/21 05:07: Sodium 136, Potassium 4.0, BUN 20 H, Creatinine 1.06, Glucose 275 H, LDL Cholesterol Direct 116 05/30/21 05:07: WBC 14.10 H D, Hgb 9.8 L D, Hct 29.0 L D, Plt Count 198 D Microbiology Data (last 24 hrs): 05/29/21 18:30 Wound - Abscess Gram Stain - Final Medications List Reviewed: Yes Assessment And Plan - Current Problems (Diagnosis) (1) Perirectal abscess Current Visit: Yes Status: Acute Plan: IV ABX CHOSEN BY DR. CORY QUINTANILLA. HE WILL DO SURGERY IN AM. DR PAN DONE SURGERY THIS AM. MAY GO HOME IN AM. (2) Uncontrolled diabetes mellitus Current Visit: Yes Status: Chronic Plan: COMPLIANCE IS POOR. SHE KNOWS COMPLICATIONS OF DIABETES. WE HAD LONG DISCUSSION AND SHE IS AWARE THAT DIABETIC COMPLICATIONS CAN HAVE DEADLY CONSEQUENCES IF NOT TAKEN CARE OF. IF SHE STAYS NON COMPLIANT, I AM NOT SURE IF ANY ONE CAN HELP HER IN ANY WAY. CHECK LAB. CONTINUE SLIDING SCALE. Qualifiers: Diabetes mellitus type: type 2 (3) Septic shock Current Visit: Yes Status: Acute Plan: IV ABX IV BOLUS IV FLUIDS. DOPAMINE IV IF NEED.
[2021-05-30] MEDS ORDERED: VANCOMYCIN 1.25 GM in NA CHLORIDE 0.9% 250 ML IVPB SCH (21:00)
[2021-05-30] MEDS ORDERED: ATORVASTATIN 20 MG TAB PO SCH (21:00)
[2021-05-31] MEDS: Ringers Lactate 1,000 ML IV SCH (01:31)
[2021-05-31] MEDS: METRONIDAZOLE 500mg IVPB 500 MG/100 ML BAG IV SCH ×2 (01:32→11:34)
[2021-05-31] MEDS ORDERED: PIPER/TAZO/NS 3.375gm 3.375 GM/100 ML BAG IVPB SCH (05:00)
[2021-05-31 05:58] LABS: Absolute Lymphocytes (CBC) 1.4 K/uL (0.7-4.9); Basophils % 0.6 % (0-1.3); Hematocrit 29.8 % (36.0-45.0); MPV 9.1 fL (7.6-11.3); RBC Red Blood Cell Count 3.48 M/uL (3.86-4.86)
[2021-05-31 06:13] LABS: Potassium 4.1 mmol/L (3.5-5.1)
[2021-05-31] MEDS ORDERED: HOME MED 1 EA UNK (Insulin Glargine/Lixisenatide [Soliqua 100 Unit-33 Mcg/Ml Pen] 3 ML Ins SQ SCH (09:00)
[2021-05-31] MEDS: INSULIN -REGULAR HUMAN 50 UNIT/0.5 ML ML SQ SCH ×2 (11:30→11:41)
[2021-05-31] MEDS: ENOXAPARIN 40 MG/0.4 ML SQ SCH (11:34)
[2021-05-31 12:19] VITALS: BP 119/71; TEMP 98.3
--- NOTE | 2021-05-31 22:46 | P.DS ---
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 SHE WAS SUPPOSED TO COME TO OFFICE IN NOVEMBER AND SHE NEVER CAME. I HAD GIVEN HER SOLIQUA DAILY AT THAT TIME BUT I AM NOT SURE IF SHE TAKES IT DAILY AND HOW MUCH SHE TAKES. SHE IS TO RAISE THE DOSE AND SHE POSSIBLY NEVER DID. SHE IS TO EAT PROPERLY BUT SHE DOES NOT. SHE IS TO FOLLOW PALEO DIET BUT SHE DOES NOT. SHE HAS ABSCESS IN PERIRECTAL AREA THAT SHE ALSO HAD IN DECEMBER AND DID NEVER FOLLOW UP WITH ME. SHE IS BACK WITH SAME ISSUE. IN ER SHE WAS GIVEN IV ABX, IV INSULIN AND HAD PYROGENIC REACTION AFTER THAT. Hospital Course: SHE HAS DONE WELL WITH ABSCESS. SHE IS NOT COMPLIANT WITH DIABETES. SHE NEVER RAISED SOLIQUA AND FOLLOWED UP WITH ME LIKE ASKED HER TO. SHE WILL HAVE DIABETES RELATED COMPLICATIONS SHE DID NOT CARE ABOUT HER DIABETES. SHE WILL FU WITH ME AND DR. QUINTANILLA. Vital Signs/Physical Exam: Temp Pulse Resp BP Pulse Ox 98.3 F 83 16 119/71 97 05/31/21 12:00 05/31/21 12:00 05/31/21 12:00 05/31/21 12:00 05/31/21 12:00 Laboratory Data at Discharge: WBC 12.40 K/uL (4.3-10.9) H 05/31/21 05:24 Hgb 10.1 g/dL (12.0-15.0) L 05/31/21 05:24 Hct 29.8 % (36.0-45.0) L 05/31/21 05:24 Plt Count 245 K/uL (152-406) D 05/31/21 05:24 Sodium 138 mmol/L (136-145) 05/31/21 05:14 Potassium 4.1 mmol/L (3.5-5.1) 05/31/21 05:14 BUN 22 mg/dL (7-18) H 05/31/21 05:14 Creatinine 0.90 mg/dL (0.55-1.3) 05/31/21 05:14 Glucose 324 mg/dL (74-106) H 05/31/21 05:14 LDL Cholesterol Direct 116 mg/dL (100-129) 05/30/21 05:07 Home Medications: Atorvastatin Calcium 20 mg PO BEDTIME 05/29/21 Insulin Glargine/Lixisenatide [Soliqua 100 Unit-33 Mcg/ml Pen] 15 units SQ DAILY 05/29/21 Ciprofloxacin HCl [Cipro 500 MG Tablet] 500 mg PO BID 7 Days #14 tab 05/31/21 Codeine/APAP [Tylenol W/Codeine #3 tab] 1 tab PO Q4H PRN 30 Days #30 tab 05/31/21 New Medications: Ciprofloxacin HCl [Cipro 500 MG Tablet] 500 mg PO BID 7 Days #14 tab Codeine/APAP [Tylenol W/Codeine #3 tab] 1 tab PO Q4H PRN 30 Days #30 tab PRN Reason: Pain Physician Discharge Instructions: PROBLEM: Perianal Abscess, Hyperglycemia GOAL: Clear understanding of disease process INSTRUCTIONS: Diet: diabetic Activity: as tolerated 1/ " iodoform packing to perianal wound daily starting 05/31/21 Diet: ADA Followup: Bhavin Noble MD [Primary Care Provider] - 1 Week (PCP- call to schedule an appointment ) Davin Quintanilla MD [ACTIVE - CAN ADMIT] - 1 Week (Call to make an appointment. )
== END 2021-05-31 13:56 | disposition home or self-care (01) | DRG 853 ==
LOC: ER 12:20 → ERHOLD 17:33 → 2ND 20:03 → OBSVTOIN 05-30 10:01
PROVIDERS: ADMIT Internal Medicine; ATTEND Internal Medicine
PROC: 0H98XZZ Drainage of Buttock Skin, External Approach (ICD-10-PCS; 2021-05-30)
PROC: 0D9Q8ZZ Drainage of Anus, Via Natural or Artificial Opening Endoscopic (ICD-10-PCS; principal; 2021-05-30 11:15)
DX: A41.9 Sepsis, unspecified organism (principal); R65.21 Severe sepsis with septic shock; K61.0 Anal abscess; E78.5 Hyperlipidemia, unspecified; I95.9 Hypotension, unspecified; E11.65 Type 2 diabetes mellitus with hyperglycemia; Z79.4 Long term (current) use of insulin; Z91.14 Patient's other noncompliance with medication regimen; Z91.11 Patient's noncompliance with dietary regimen; Z91.19 Patient's noncompliance with other medical treatment and regimen; Z79.899 Other long term (current) drug therapy; Z20.822 Contact with and (suspected) exposure to COVID-19
CPT/HCPCS: 36415; 72193; 80048; 82565; 82947; 83605; 85025; 87040; 87070; 87075; 87077; 87186; 87205; 88304; 94010; 96361; 96365; 96375; 99284; G0378; J1100; J1200; J1650; J2250; J2405; J2543; J2704; J3010; J3370; J7030; J7040; J7050; J7120; Q9967; U0003

== ENCOUNTER 2024-07-16 10:14 | Emergency (ER) | payer OTHER ==
--- OUTSIDE RECORDS SUMMARY | 2024-07-16 10:16 | XMS REPORT | Continuity of Care Document ---
Author Name Unknown Address [address] [facility]. [address] [id number] [facility] Address [address] [facility] [address] [place] [address] Care Team Providers Care Sewer Repairer Name Role Phone Pcp, Patient Does Not Have A Primary Care Physic nina [email or web address] Attending Clinician Unavaila nilam Pearson RN, Lillian Fisher Attending Clinician Unavailab le Only, Ang Db Test Attending Clinician Unavailslim Lobato PARAGLIDING INSTRUCTOR, Bhavani Attending Clinician BHAVANI LOBATO Attending Clinician Unavailable Doctor Unassigned, Longoria Attending Clinician U navailable [email or web address] Admitting Clinician Unavaila nilam Payers Payer Name Policy Type Policy Number Effective Date Expirati on Date Source Allergies, Adverse Reactions, Alerts Allergy Name Allergy Type Status Severity Reaction(s) Onset Date Inactive Date Treating Clinician Comments Source NO KNOWN ALLERGIE S Drug Class Active [facility] Social History Social Habit Start Date Stop Date Quantity Comments Source Exposure to SARS-CoV-2 (event) Yes [facility] Sex Assigned At 1965 00:00:00 1965 [facility] Smoking Status Start Date Stop Date Source Unknown if ever smoked [facility] Medications Ordered Medication Name Filled Medication Name Start Date Stop Date Current Medication? Ordering Clinician Indication Dosage Frequency Signature (SIG) Comments Components Source No known medications 11-13 19:27: 45 No [facility] Encounters Start Date/Time End Date/Time Encounter Type Admission Type Attending Clinicians Care Facility Care Department Encounter ID Source 2023-09-09 00:00:00 2023-09-09 00:00:00 Outpatient [email or web address] [facility] [id number] [facility] 2021-11-15 00:00:00 2021-11-15 00:00:00 Letter (Out) Lillian Pearson [facility] 1..840.114 [id number] [facility] 2021-11-13 19:00:00 2021-11-13 19:15:00 Laboratory Only Only, Ang Db Test Cheryle [facility]?SA[facility]Z [facility] 1..840.114 [id number] [facility] 2021-11-13 19:00:00 2021-11-13 19:00:00 Outpatient R CHERYLE BHAVANI [facility] [id number] [facility] 2021-11-13 00:00:00 2021-11-13 00:00:00 Letter (Out) Doctor Unassigned, Longoria [facility] [id number] [facility]
--- NOTE | 2024-07-16 11:23 | RAD REPORT ---
EXAM DESCRIPTION: Jefft Single View07/16/2024 10:56 am CLINICAL HISTORY: htn COMPARISON: Chest Pa And Lat (2 Views) dated 05/29/2016; CHEST PA AND LAT 2 VIEW dated 08/20/2015; CH EST PA AND LAT 2 VIEW dated 05/29/2014; CHEST PA AND LAT 2 VIEW dated 09/15/2012 TECHNIQUE: Portable AP view of the chest. FINDINGS: The lungs are clear. No pneumothorax or effusion. The cardiomediastinal contours are unre markable. IMPRESSION: No acute cardiopulmonary process.
--- NOTE | 2024-07-16 11:31 | RAD REPORT ---
EXAM DESCRIPTION: CT - Head Brain Wo Cont - 07/16/2024 11:19 am CLINICAL HISTORY: VISUAL DISTURBANCES COMPARISON: No comparisons TECHNIQUE: Noncontrast head CT images were obtained without IV contrast. Multiplanar reformats were generated and reviewed. All CT scans are performed using dose optimization technique as appropriate and may include automated exposure control or mA/KV adjustment according to patient size. FINDINGS: No intracranial hemorrhage, mass, or edema. Midline structures are unremarkable. Normal ventricular caliber for age. Saul-white matter differentiation is preserved, without evidence of acute infarct. No abnormal extra- axial fluid collections. Mastoid air cells and visualized portions of the paranasal sinuses are clear. No acute bony findings. IMPRESSION: No evidence of an acute intracranial process.
[2024-07-16] MEDS ORDERED: cloNIDine HCL 0.1 MG TAB ONE (11:43)
[2024-07-16] MEDS ORDERED: ONDANSETRON 4 MG/2 ML VIAL ONE (11:43)
[2024-07-16] MEDS ORDERED: FAMOTIDINE 20 MG/2 ML VIAL IV ONE (11:43)
[2024-07-16] MEDS ORDERED: NA CHLORIDE 0.9% 1,000 ML ONE (11:44)
[2024-07-16 11:50] LABS: Absolute Basophils 0.1 K/uL (0-0.5); Absolute Eosinophils 0.5 K/uL (0-0.5); Absolute Lymphocytes (CBC) 2.6 K/uL (0.7-4.9); Absolute Monocytes 0.7 K/uL (0.1-1.3); Absolute Neutrophil 5.5 K/uL (1.8-8.0); Basophils % 1.2 % (0-1.3); Eosinophils % 5.6 % (0-4.4); Hematocrit 38.3 % (36.0-45.0); Hemoglobin 12.2 g/dL (12.0-15.0); Lymphocytes % 27.4 % (15.3-44.8); MCH 27.6 pg (27.0-35.0); MCHC 31.7 g/dL (32.0-36.0); MCV 86.9 fL (80-100); MPV 10.1 fL (7.6-11.3); Monocytes % 7.4 % (3.3-12.3); Neutrophils % 58.4 % (41.7-73.7); Platelets 331 thou/uL (152-406); RBC Red Blood Cell Count 4.41 M/uL (3.86-4.86)
[2024-07-16 12:01] LABS: Protime INR 0.98
[2024-07-16 12:06] LABS: Specific Gravity 1.011 (1.005-1.030); Urine Bacteria None Seen /HPF (<20); Urine Bilirubin NEGATIVE (Negative); Urine Blood 1+ (Negative); Urine Clarity Extremely Turbid (Clear); Urine Color Colorless (Yellow); Urine Culture Reflex Order NOT NEEDED; Urine Glucose 2+ (Negative); Urine Ketones NEGATIVE (Negative); Urine Microscopic Reflex YN ORDER UMIC; Urine Mucus Slight /HPF (None Seen); Urine Nitrite NEGATIVE (Negative); Urine Protein 3+ (Negative); Urine RBC <5 /HPF (None Seen); Urine Urobilinogen Normal (Normal); Urine WBC <5 /HPF (<5); Urine pH 6.5 (5.0-7.0)
[2024-07-16 12:09] LABS: ALT/SGPT 15 U/L (13-56); Albumin 2.4 g/dL (3.4-5.0); Albumin/Globulin Ratio 0.6 (1.1-1.8); Alkaline Phosphatase 96 U/L (45-117); Anion Gap 9.6 mEq/L (5.0-15.0); BUN Blood Urea Nitrogen 53 mg/dL (7-18); Bicarbonate 21 mEq/L (21-32); Bilirubin Total 0.2 mg/dL (0.2-1.0); Globulin 4.1 g/dL (2.3-3.5); Glomerular Filtration Rate 24 ml/min (=/>90); Glucose Level 139 mg/dL (74-106); Magnesium 2.1 mg/dL (1.6-2.4); Potassium 4.6 mEq/L (3.5-5.1); Protein, Total 6.5 g/dL (6.4-8.2); Sodium Level 140 mEq/L (136-145); Troponin High Sensitivity 7.4 pg/mL (<58.9)
[2024-07-16 12:10] LABS: AST/SGOT < 10 U/L (15-37); Bilirubin Direct < 0.2 mg/dL (0-0.2)
--- NOTE | 2024-07-16 12:53 | ER ---
Nurse's Notes [facility] Name: Chante Arteaga Age: 58 yrs Sex: Female : 1965 Arrival Date: 07/16/2024 Time: 10:14 Bed 18 Private MD: Diagnosis: Hypertensive heart and chronic kidney disease without heart failure, with stage 1 through stage 4 chronic kidney disease, or unspecified chronic kidney disease Presentation: 07/16 12:03 Chief complaint: Patient states: blood pressure has been high. Denies chest pain, tm6 nausea, sob. Coronavirus screen: Vaccine status: Patient reports receiving the 2nd dose of the covid vaccine. Ebola Screen: Patient negative for fever greater than or equal to 101.5 degrees Fahrenheit, and additional compatible Ebola Virus Disease symptoms Patient denies exposure to infectious person. Patient denies travel to an Ebola-affected area in the 21 days before illness onset. No symptoms or risks identified at this time. Initial Sepsis Screen: Does the patient meet any 2 criteria? No. Patient's initial sepsis screen is negative. Does the patient have a suspected source of infection? No. Patient's initial sepsis screen is negative. Risk Assessment: Do you want to hurt yourself or someone else? Patient reports no desire to harm self or others. Onset of symptoms is unknown. 12:03 Method Of Arrival: Ambulatory tm6 12:03 Acuity: JESÚS 3 tm6 Triage Assessment: 12:03 General: Appears in no apparent distress. Behavior is calm, cooperative. Pain: Denies tm6 pain. EENT: No signs and/or symptoms were reported regarding the EENT system. Neuro: Level of Consciousness is awake, alert, obeys commands, Oriented to person, place, time, situation. Cardiovascular: Denies chest pain, lightheadedness, nausea, shortness of breath, Patient's skin is warm and dry. Rhythm is sinus rhythm. Respiratory: Airway is patent Respiratory effort is even, unlabored, Respiratory pattern is regular, symmetrical. GI: No signs and/or symptoms were reported involving the gastrointestinal system. Abdomen is flat, non-distended. : No signs and/or symptoms were reported regarding the genitourinary system. Derm: No signs and/or symptoms reported regarding the dermatologic system. Musculoskeletal: No signs and/or symptoms reported regarding the musculoskeletal system. Historical: - Allergies: 10:27 No Known Allergies; ll1 - PMHx: 10:27 Diabetes - IDDM; Hyperlipidemia; ll1 - Immunization history:: Adult Immunizations up to date. - Infectious Disease History:: Denies. - Social history:: Smoking status: Patient denies any tobacco usage or history of. Patient/guardian denies using alcohol. Screenin:07 [facility] ED Fall Risk Assessment (Adult) History of falling in the last 3 months, tm6 including since admission No falls in past 3 months (0 pts) Confusion or Disorientation No (0 pts) Intoxicated or Sedated No (0 pts) Impaired Gait No (0 pts) Mobility Assist Device Used No (0 pt) Altered Elimination No (0 pt) Score/Fall Risk Level 0 - 2 = Low Risk Oriented to surroundings, Maintained a safe environment, Educated pt \T\ family on fall prevention, incl call for assistance when getting out of bed. Abuse screen: Denies threats or abuse. Denies injuries from another. Nutritional screening: No deficits noted. Tuberculosis screening: No symptoms or risk factors identified. Assessment: 12:07 Reassessment: see triage assessment. Pain: Denies pain. tm6 13:03 Reassessment: Patient appears in no apparent distress at this time. Patient and/or tm6 family updated on plan of care and expected duration. Pain level reassessed. Patient is alert, oriented x 3, equal unlabored respirations, skin warm/dry/pink. Vital Signs: 12:03 BP 189 / 102; Pulse 71; Resp 19; Pulse Ox 100% on R/A; Weight 68.95 kg; Height 5 ft. 1 tm6 in. ; Pain 0/10; 12:03 Temp 98(O); tm6 13:02 BP 151 / 99; Pulse 64; Resp 20; Temp 98; Pulse Ox 98% on R/A; Pain 0/10; tm6 12:03 Body Mass Index 28.72 (68.95 kg, 154.94 cm) tm6 12:03 Pain Scale: Adult tm6 13:02 Pain Scale: Adult tm6 ED Course: 10:15 Patient arrived in ED. mr 10:19 Den Parada PA is PHCP. cp 10:19 Den Ram MD is Attending Physician. cp 10:27 Arm band placed on Patient placed in an exam room, on a stretcher. ll1 10:29 Benja Sheehan, RN is Primary Nurse. tm6 10:57 XRAY Chest (1 view) In Process Unspecified. EDMS 11:21 CT Head Brain wo Cont In Process Unspecified. EDMS 11:59 Inserted saline lock: 20 gauge in right antecubital area, using aseptic technique. tm6 Blood collected. Flushed with 10 mL NS. 12:02 Urinalysis w/ reflexes Sent. tm6 12:02 Basic Metabolic Panel Sent. tm6 12:02 LFT's Sent. tm6 12:02 Magnesium Sent. tm6 12:02 Troponin HS Sent. tm6 12:02 EKG done, by ED staff, reviewed by Den SANCHEZ. tm6 12:06 Triage completed. tm6 12:07 Patient has correct armband on for positive identification. Bed in low position. Call tm6 light in reach. Side rails up X 1. Provided Education on: use of call perez. Client placed on continuous cardiac and pulse oximetry monitoring. NIBP monitoring applied. brusher operator on. Pulse ox on. NIBP on. Door closed. Noise minimized. Warm blanket given. 12:07 No provider procedures requiring assistance completed. tm6 13:03 IV discontinued, intact, bleeding controlled, No redness/swelling at site. Pressure tm6 dressing applied. Administered Medications: 12:01 Drug: cloNIDine PO 0.2 mg PO once Route: PO; tm6 12:54 Follow up: Response: No adverse reaction tm6 12:02 Drug: NS 0.9% IV 1000 ml IV at 999 ml/hr Per protocol Route: IV; Rate: 999 ml/hr; Site: tm6 right antecubital; 12:54 Follow up: Response: No adverse reaction; IV Status: Completed infusion; IV Intake: tm6 1000ml 12:02 Drug: Ondansetron IVP 4 mg IVP once; over 2 minutes Route: IVP; Site: right antecubital;tm6 12:54 Follow up: Response: No adverse reaction tm6 12:02 Drug: Famotidine IVP 20 mg IVP once; dilute with 10 mL 0.9% NaCl; give over 2 minutes tm6 Route: IVP; Site: right antecubital; 12:54 Follow up: Response: No adverse reaction tm6 13:03 Drug: amLODIPine PO 10 mg PO once Route: PO; tm6 13:03 Follow up: Response: Medication administered at discharge. tm6 Medication: 12:07 VIS not applicable for this client. tm6 Intake: 12:54 IV: 1000ml; Total: 1000ml. tm6 Outcome: 12:52 Discharge ordered by . jamila 13:03 Discharged to home ambulatory, with family, tm6 13:03 Condition: stable 13:03 Discharge instructions given to patient, family, Instructed on discharge instructions, follow up and referral plans. medication usage, taking blood pressure at home Demonstrated understanding of instructions, follow-up care, medications, Prescriptions given X 1, 13:04 Patient left the ED. tm6 Signatures: Dispatcher [employer] EDMS Chacha Chaparro, Reg Reg mr Den Parada, Nasima Bear cp, RN RN ll1 Benja Sheehan RN RN tm6
--- NOTE | 2024-07-16 12:53 | EDPHYS ---
Physician Documentation [facility] Name: Chante Arteaga Age: 58 yrs Sex: Female : 1965 Arrival Date: 07/16/2024 Time: 10:14 Bed 18 Private MD: HANY Physician Den Ram HPI: 07/16 10:50 This 58 yrs old Female presents to ER via Ambulatory with complaints of High cp Blood Pressure. 10:50 Onset: The symptoms/episode began/occurred at an unknown time. HX of HTN, poorly cp controlled. C/o vision not being focussed, otherwise no complaints. Here with family who are concerned about patient's uncontrolled htn. Blood pressure medication recently increased and patient with HX kidney disease. Historical: - Allergies: 10:27 No Known Allergies; ll1 - PMHx: 10:27 Diabetes - IDDM; Hyperlipidemia; ll1 - Immunization history:: Adult Immunizations up to date. - Infectious Disease History:: Denies. - Social history:: Smoking status: Patient denies any tobacco usage or history of. Patient/guardian denies using alcohol. ROS: 10:55 Eyes: Positive for visual disturbance, Negative for blurry vision, vision loss, cp 10:55 Constitutional: Negative for body aches, chills, fever, poor PO intake, cp 10:55 Cardiovascular: Negative for chest pain, edema, palpitations, cp 10:55 Respiratory: Negative for cough, shortness of breath, wheezing, 10:55 Abdomen/GI: Negative for abdominal pain, nausea, vomiting, and diarrhea, 10:55 Neuro: Negative for altered mental status, dizziness, headache, numbness, syncope, near syncope, weakness, 10:55 All other systems are negative, cp Exam: 11:00 Constitutional: The patient appears in no acute distress, alert, awake, cp non-diaphoretic, non-toxic, well developed, well nourished, 11:00 Head/Face: Normocephalic, atraumatic. cp 11:00 Eyes: Periorbital structures: appear normal, Pupils: equal, round, and reactive to light and accomodation, Extraocular movements: intact throughout, Conjunctiva: normal, no exudate, no injection, Sclera: no appreciated abnormality, Lids and lashes: appear normal, bilaterally, 11:00 ENT: External ear(s): are unremarkable, Nose: is normal, Mouth: Lips: moist, Oral mucosa: pink and intact, moist, Posterior pharynx: Airway: no evidence of obstruction, patent, 11:00 Chest/axilla: Inspection: normal, 11:00 Cardiovascular: Rate: normal, Rhythm: regular, Edema: is not appreciated, JVD: is not appreciated, 11:00 Respiratory: the patient does not display signs of respiratory distress, Respirations: normal, no use of accessory muscles, no retractions, labored breathing, is not present, Breath sounds: are clear throughout, no decreased breath sounds, no stridor, no wheezing, 11:00 Abdomen/GI: Inspection: abdomen appears normal, Palpation: abdomen is soft and non-tender, in all quadrants, 11:00 Back: pain, is absent, ROM is normal, 11:00 Neuro: Orientation: to person, place \T\ time. Mentation: is normal, Cerebellar function: is grossly normal, Motor: moves all fours, strength is normal, Sensation: is normal, 11:55 ECG was reviewed by the Attending Physician. Vital Signs: 12:03 BP 189 / 102; Pulse 71; Resp 19; Pulse Ox 100% on R/A; Weight 68.95 kg; Height 5 ft. 1 tm6 in. ; Pain 0/10; 12:03 Temp 98(O); tm6 13:02 BP 151 / 99; Pulse 64; Resp 20; Temp 98; Pulse Ox 98% on R/A; Pain 0/10; tm6 12:03 Body Mass Index 28.72 (68.95 kg, 154.94 cm) tm6 12:03 Pain Scale: Adult tm6 13:02 Pain Scale: Adult tm6 MDM: 10:28 Patient medically screened. cp 12:50 Data reviewed: vital signs, nurses notes, lab test result(s), EKG, radiologic studies, cp CT scan, plain films, and as a result, I will discharge patient. 12:50 Differential diagnosis: hypertensive crisis, Malignant HTN, CVA, intracerebral cp hemorrhage. I considered the following discharge prescriptions or medication management in the emergency department Medications were administered in the Emergency Department. See MAR. Independent interpretation of the following test(s) in the Emergency Department EKG: See my EKG interpretation above. Counseling: I had a detailed discussion with the patient and/or guardian regarding the historical points, exam findings, and any diagnostic results supporting the discharge/admit diagnosis, lab results, radiology results, the need for outpatient follow up, a family practitioner, to return to the emergency department if symptoms worsen or persist or if there are any questions or concerns that arise at home. Response to treatment: the patient's symptoms have markedly improved after treatment, and as a result, I will discharge patient. 07/16 10:45 Order name: Basic Metabolic Panel; Complete Time: 12:16 07/16 12:17 Interpretation: Normal except: CL 114; GLUC 139; BUN 53; CRE 2.30; GFR 24. 07/16 10:45 Order name: CBC with Diff; Complete Time: 11:54 07/16 10:45 Order name: LFT's; Complete Time: 12:16 07/16 12:17 Interpretation: Normal except: AST < 10; IBILI, CALC 0.0; ALB 2.4; GLOB 4.1; A/G 0.6. 07/16 10:45 Order name: Magnesium; Complete Time: 12:16 07/16 10:45 Order name: PT-INR; Complete Time: 12:16 07/16 10:45 Order name: Troponin HS; Complete Time: 12:16 07/16 10:45 Order name: Urinalysis w/ reflexes; Complete Time: 12:16 07/16 12:17 Interpretation: Normal except: UCLA Extremely Turbid; UGLUC 2+; UBLD 1+; UPROT 3+. 07/16 10:45 Order name: XRAY Chest (1 view); Complete Time: 11:32 07/16 10:45 Order name: CT Head Brain wo Cont; Complete Time: 11:32 07/16 11:32 Interpretation: Report reviewed. 07/16 10:45 Order name: Cardiac monitoring; Complete Time: 12:02 07/16 10:45 Order name: EKG - Nurse/Tech; Complete Time: 12:02 07/16 10:45 Order name: IV Saline Lock; Complete Time: 12:02 07/16 10:45 Order name: Labs collected and sent; Complete Time: 12:02 07/16 10:45 Order name: O2 Per Protocol; Complete Time: 12:02 07/16 10:45 Order name: O2 Sat Monitoring; Complete Time: 12:02 cp 09 10:45 Order name: Accucheck Blood Glucose; Complete Time: 12:02 cp EC:55 Rate is 71 beats/min. Rhythm is regular. [place] interval is normal. QRS interval is normal. cp QT interval is normal. T waves are Inverted in lead aVR. Interpreted by me. Reviewed by me. Administered Medications: 12:01 Drug: cloNIDine PO 0.2 mg PO once Route: PO; tm6 12:54 Follow up: Response: No adverse reaction tm6 12:02 Drug: NS 0.9% IV 1000 ml IV at 999 ml/hr Per protocol Route: IV; Rate: 999 ml/hr; Site: tm6 right antecubital; 12:54 Follow up: Response: No adverse reaction; IV Status: Completed infusion; IV Intake: tm6 1000ml 12:02 Drug: Ondansetron IVP 4 mg IVP once; over 2 minutes Route: IVP; Site: right antecubital;tm6 12:54 Follow up: Response: No adverse reaction tm6 12:02 Drug: Famotidine IVP 20 mg IVP once; dilute with 10 mL 0.9% NaCl; give over 2 minutes tm6 Route: IVP; Site: right antecubital; 12:54 Follow up: Response: No adverse reaction tm6 13:03 Drug: amLODIPine PO 10 mg PO once Route: PO; tm6 13:03 Follow up: Response: Medication administered at discharge. tm6 Disposition Summary: 07/16/24 12:52 Discharge Ordered Notes: Location: Home cp Problem: chronic cp Symptoms: have improved cp Condition: Stable cp Diagnosis - Hypertensive heart and chronic kidney disease without heart failure, with stage 1 cp through stage 4 chronic kidney disease, or unspecified chronic kidney disease Followup: cp - With: Private Physician - When: 2 - 3 days - Reason: Recheck today's complaints Discharge Instructions: - Discharge Summary Sheet cp - Hypertension, Adult cp - Food Basics for Chronic Kidney Disease cp - Chronic Kidney Disease, Adult cp Forms: - Medication Reconciliation Form cp - Antibiotic Education cp - Prescription Opioid Use cp - Patient Portal Instructions cp - Leadership Thank You Letter cp Prescriptions: - amlodipine 5 mg Oral tablet - take 1 tablet ORAL route daily; 30 tablet; Refills: 0, Product Selection cp Permitted Addendum: 07/23/2024 15:38 Co-signature as Attending Physician, Den Ram MD I agree with the assessment and c mesa plan of care. Signatures: Dispatcher [employer] EDDen Morales MD MD cha Page, Corey, Nasima Bear cp, RN RN ll1 Benja Sheehan RN RN tm6 Corrections: (The following items were deleted from the chart) 07/16 10:46 10:46 BASIC METABOLIC PANEL+C.LAB.BRZ ordered. EDMS EDMS 10:46 10:46 CBC+H.LAB.BRZ ordered. EDMS EDMS 10:46 10:46 HEPATIC FUNCTION+C.LAB.BRZ ordered. EDMS EDMS 10:46 10:46 MAGNESIUM+C.LAB.BRZ ordered. EDMS EDMS 10:46 10:46 PROTIME (+INR)+COAG.LAB.BRZ ordered. EDMS EDMS 10:46 10:46 Troponin High Sensitivity+C.LAB.BRZ ordered. EDMS EDMS 10:46 10:46 Urinalysis+U.LAB.BRZ ordered. EDMS EDMS 10:46 10:46 Chest Single View+RAD.RAD.BRZ ordered. EDMS EDMS 10:46 10:46 Head Brain Wo Cont+CT.RAD.BRZ ordered. EDMS EDMS
[2024-07-16] MEDS ORDERED: AMLODIPINE 10 MG TAB ONE (12:56)
[2024-07-16 13:28] VITALS: TEMP 98
[2024-07-16 13:35] VITALS: BP 151/99; O2SAT 98
--- NOTE | 2024-07-18 17:04 | EKG ---
Test Date: 2024-07-16 Test Time: 11:48:29 Boiler Operator Helper: MEDINA MEASUREMENT RESULTS: Intervals: Rate: 71 SC: 168 QRSD: 80 QT: 376 QTc: 408 [place]: P: 41 SC: 168 QRS: -53 T: 76 INTERPRETIVE STATEMENTS: Normal sinus rhythm Left axis deviation Abnormal ECG No previous ECG available for comparison Electronically Signed On 07-18-24 17:00:17 CDT by Omid Parra
== END 2024-07-16 13:04 | disposition home or self-care (01) ==
LOC: ER 10:14
DX: I12.9 Hypertensive chronic kidney disease with stage 1 through stage 4 chronic kidney disease, or unspecified chronic kidney disease (principal); E11.9 Type 2 diabetes mellitus without complications; E78.5 Hyperlipidemia, unspecified
CPT/HCPCS: 96361; 93005; 85025; 81001; 80048; 36415; 83735; 85610; 80076; 84484; 70450; 71045; 96375; 96374; 99285; J2405; J7030